=== PATIENT | male | born 1950 | race Caucasian/White ===

== ENCOUNTER 2019-04-19 07:00 | Day surgery (SDC) | payer OTHER ==
[~2019-04-19] VITALS: Ht 165.1 cm; Wt 70.3 kg
[2019-04-20] MEDS ORDERED: ANALPRAM HC 2.530 GM RECTAL (08:13)
== END 2019-04-20 08:00 | disposition home or self-care (01) ==
LOC: SURG 07:00 → CIR.AMB 07:00 → EDSTATUS 13:00 → SURG 13:00 → O/R 13:23 → SURG 13:23 → CIR.AMB 04-20 08:00 → SURG 04-20 10:41
DX: D12.8 Benign neoplasm of rectum (principal)